=== PATIENT | female | born 1940 | race Caucasian/White ===

== ENCOUNTER 2017-08-09 15:13 | Inpatient (IN) | payer MEDICARE, OTHER ==
[~2017-08-09] VITALS: Ht 170.2 cm; Wt 57.4 kg
[2017-08-09] MEDS ORDERED: SODIUM CHLORIDE 0.9% 1000ML 1,000 ML IV STA (15:57)
[2017-08-09] MEDS ORDERED: PANTOPRAZOLE 40 MG 10ML VIAL IV STA (15:57)
[2017-08-09] MEDS ORDERED: MORPHINE SULFATE 4 MG/ML SYR IV STA (15:57)
[2017-08-09] MEDS ORDERED: PROMETHAZINE HCL (IM) 25 MG/ML VIAL IV STA (15:57)
[2017-08-09 16:07] LABS: BASOPHILS % 0.1 % (0.0-1.0); EOSINOPHILS % 0.1 % (0.0-6.0); HEMATOCRIT 35.2 % (34.2-44.1); HEMOGLOBIN 12.6 g/dL (12.0-16.0); LYMPHOCYTES # (AUTO) 0.3 (1.0-3.2); LYMPHOCYTES % 3.6 % (18.0-39.1); MEAN CORPUSCULAR HEMOGLOBIN 36.1 pg (28-32); MEAN CORPUSCULAR HGB CONC 35.8 g/dL (31-35); MEAN CORPUSCULAR VOLUME 100.9 fL (81-99); MONOCYTES # (AUTO) 0.5 (0.2-0.8); MONOCYTES % 5.3 % (4.4-11.3); NEUTROPHILS # (AUTO) 8.1 (2.1-6.9); NEUTROPHILS % 90.6 % (38.7-80.0); PLATELET COUNT 306 x10e3/uL (140-360); RED BLOOD COUNT 3.49 x10e6/uL (3.6-5.1); RED CELL DISTRIBUTION WIDTH 13.6 % (11.7-14.4)
[2017-08-09 16:23] LABS: ALANINE AMINOTRANSFERASE 9 IU/L (0-55); ALBUMIN 3.7 g/dL (3.5-5.0); ALKALINE PHOSPHATASE 142 IU/L (40-150); AMYLASE 11 U/L (25-125); ANION GAP 15.3 mmol/L (8-16); BLOOD UREA NITROGEN 16 mg/dL (7-26); BUN/CREATININE RATIO 21 (6-25); CALCIUM 10.2 mg/dL (8.4-10.2); CARBON DIOXIDE 28 mmol/L (22-29); CHLORIDE 95 mmol/L (98-107); CREATININE, SERUM 0.77 mg/dL (0.57-1.11); EST GLOMERULAR FILTRATION RATE > 60 ML/MIN (60-); GLUCOSE 134 mg/dL (74-118); LIPASE < 4 U/L (8-78); MAGNESIUM 2.1 MG/DL (1.3-2.1); POTASSIUM 3.3 mmol/L (3.5-5.1); SODIUM 135 mmol/L (136-145)
[2017-08-09] MEDS ORDERED: DIATRIZOATE MEGL/DIATRIZOA SOD 30 ML BTL PO ONE (16:26)
[2017-08-09] MEDS ORDERED: MORPHINE SULFATE 2 MG/ML SYR IV ONE (16:30)
[2017-08-09] MEDS ORDERED: MORPHINE SULFATE 2 MG/ML SYR ONE (16:31)
[2017-08-09] MEDS ORDERED: PANTOPRAZOLE 40 MG 10ML VIAL ONE (16:31)
[2017-08-09] MEDS ORDERED: PROMETHAZINE HCL (IM) 25 MG/ML VIAL ONE (16:31)
[2017-08-09] MEDS ORDERED: SODIUM CHLORIDE 0.9% 1000ML 1,000 ML ONE (16:32)
[2017-08-09] MEDS ORDERED: SODIUM CHLORIDE 0.9% 50ML 50 ML ONE (16:32)
--- NOTE | 2017-08-09 17:04 | Diagnostic Imaging Report ---
PROCEDURE: A single AP view of the chest. COMPARISON: None. INDICATIONS: UPPER ABDOMINAL PAIN FINDINGS: Lines/tubes: None. Lungs: Streaky opacities in the lung bases likely represents atelectasis or scar.. There is no evidence of pneumonia or pulmonary edema. Pleura: There is no pleural effusion or pneumothorax. Heart and mediastinum: Normal size heart. Mild tortuosity of the thoracic aorta. Small hiatal hernia. Bones: No acute bony abnormality. Healed fracture deformities of the left posterior sixth and seventh ribs. IMPRESSION: No evidence of infection or edema. Dictated by: Porfirio Colón M.D. on 08/09/2017 at 17:05 Electronically approved by: Porfirio Colón M.D. on 08/09/2017 at 17:05
--- NOTE | 2017-08-09 19:11 | Diagnostic Imaging Report ---
PROCEDURE: CT ABDOMEN AND PELVIS WITH CONTRAST TECHNIQUE: The abdomen and pelvis were scanned utilizing a multidetector helical scanner from the diaphragm to the lesser trochanter after the IV administration of 100 cc of Isovue 370. Coronal and sagittal multiplanar reformations were obtained. COMPARISON: None. INDICATIONS: abdominal pain, rule out SBO FINDINGS: LOWER THORAX: Normal. HEPATOBILIARY: Innumerable bilobar hypodense liver lesions. For example, one of the lesions in segment VII of series 2, image 12) measures 2.5 cm. There are multiple stones in the gallbladder. The common bile that is mildly dilated, measuring 1.1 cm. SPLEEN: No splenomegaly. PANCREAS: No focal masses or ductal dilatation. ADRENALS: No adrenal nodules. KIDNEYS/URETERS: No hydronephrosis, stones, or solid mass lesions. 1.0 cm hypodensity in the interpolar region of left kidney (series 2, image 26) is consistent with a cyst. PELVIC ORGANS/BLADDER: Evaluation of the pelvis is limited by streak artifact from the left hip orthopedic hardware PERITONEUM / RETROPERITONEUM: Small amount of free fluid in the pelvis. No free intraperitoneal air. LYMPH NODES: No lymphadenopathy. VESSELS: Mild atherosclerotic calcifications of the aorta and its branches. GI TRACT: There is marked, diffuse dilatation of the large bowel with a malignant appearing stricture in the mid-rectum that measures at least 4.5 cm (series 2, image 70). Moderate sliding hiatal hernia. A suture line in the proximal jejunum (series 2, image 48) indicates prior small bowel resection. BONES AND SOFT TISSUES: A medullary frances and screw device is present in the left femur without evidence of hardware malfunction. Multilevel degenerative changes of the lumbar spine, particularly at L4-L5 and L5-S1. IMPRESSION: 1. Large bowel obstruction due to a stricture in the mid rectum, highly suspicious for rectal cancer. 2. Numerous liver lesions, highly suspicious for metastases. 3. Cholelithiasis. There is mild dilatation of the common bile duct which is indeterminate. Dictated by: Porfirio Colón M.D. on 08/09/2017 at 19:12 Electronically approved by: Porfirio Colón M.D. on 08/09/2017 at 19:12
[2017-08-09 19:30] LABS: CLARITY,URINE SL CLOUDY (CLEAR); COLOR,URINE STRAW (YELLOW); LEUKOCYTE ESTERASE ,URINE NEGATIVE (NEGATIVE); NITRITE,URINE NEGATIVE (NEGATIVE)
[2017-08-09] MEDS ORDERED: PROMETHAZINE HCL (IM) 25 MG/ML VIAL IV PRN (19:30)
[2017-08-09] MEDS ORDERED: MORPHINE SULFATE 2 MG/ML SYR IV PRN (19:30)
[2017-08-09] MEDS ORDERED: SODIUM CHLORIDE 0.9% 250ML IRRIG IR SCH (19:30)
[2017-08-09 19:31] LABS: BILIRUBIN,URINE 1+ (NEGATIVE); KETONES,URINE 1+ (NEGATIVE); PROTEIN,URINE DIPSTICK 1+ (NEGATIVE); URINE UROBILINOGEN 1 mg/dL (0.2 - 1)
[2017-08-09] MEDS ORDERED: PIPER-TAZ 3.375 GM 50 ML IV STA (19:37)
[2017-08-09 19:43] LABS: BACTERIA,URINE MANY /HPF; RBC,URINE 0-5 /HPF (0-5)
[2017-08-09] MEDS ORDERED: PROMETHAZINE 12.5MG/ NACL 0.9% 50 ML IV PRN (19:45)
[2017-08-09] MEDS ORDERED: BENZOCAINE/TETRACAINE/BUTAMBEN AERO SPRAY 56 GM CAN TOP ONE (20:00)
[2017-08-09] MEDS ORDERED: PIPER-TAZ 3.375 GM 100 ML IV ONE (20:00)
[2017-08-09] MEDS ORDERED: LIDOCAINE VISC 2% SOLN 15 ML UDC PO ONE (20:00)
[2017-08-09] MEDS ORDERED: BENZOCAINE/TETRACAINE/BUTAMBEN AERO SPRAY 56 GM CAN ONE (20:02)
[2017-08-09] MEDS: SODIUM CHLORIDE 0.9% 250ML IRRIG IR SCH ×2 (21:00→23:30)
[2017-08-09] MEDS: SODIUM CHLORIDE 0.9% 1000ML 1,000 ML IV SCH (21:00)
--- OUTSIDE RECORDS SUMMARY | 2017-08-09 21:07 | XMS REPORT ---
Author Author [facility] Address Unknown Phone Unavailable Care Team Providers Care Music Educator Name Role Phone MIA GALLOWAY Unavailable Unavailable Problems This patient has no known problems. Allergies, Adverse Reactions, Alerts This patient has no known allergies or adverse reactions. Medications This patient has no known medications. Results Test Description Test Time Test Comments Text Results Atomic Results Result Comments CHEST SINGLE (PORTABLE) [place] [address] Patient Name: KRYSTINA MERCADO MR #: [id number] : 1940 Age/Sex: 76/F Req #: [id number] Adm Physician: Ordered by: MIA GALLOWAY MD Report #: [id number] Location: ER Room/Bed: Procedure: [id number] DX/CHEST SINGLE (PORTABLE) Exam Date: Exam Time: REPORT STATUS: Signed PROCEDURE: A single AP view of the chest. COMPARISON: None. INDICATIONS: UPPER ABDOMINAL PAIN FINDINGS: Lines/tubes: None. Lungs: Streaky opacities in the lung bases likely represents atelectasis or scar.. There is no evidence of pneumonia or pulmonary edema. Pleura: There is no pleural effusion or pneumothorax. Heart and mediastinum: Normal size heart. Mild tortuosity of the thoracic aorta. Small hiatal hernia. Bones: No acute bony abnormality. Healed fracture deformities of the left posterior sixth and seventh ribs. IMPRESSION: No evidence of infection or edema. Dictated by: Ernestina Pickard M.D. on 08/09/2017 at 17:05 Electronically approved by: Ernestina Pickard M.D. on 08/09/2017 at 17:05 Dictated By: ERNESTINA PICKARD MD 04 Transcribed By: YOBANY on 08/09/171704 COPY TO: MIA GALLOWAY MD CT ABDOMEN/PELVIS W [place] [address] Patient Name: KRYSTINA MERCADO MR #: [id number] : 1940 Age/Sex: 76/F Req #: [id number] Adm Physician: Ordered by: MIA GALLOWAY MD Report #: [id number] Location: ER Room/Bed: Procedure: [id number] CT/CT ABDOMEN/PELVIS W Exam Date: 08/09/17 Exam Time: 1835 REPORT STATUS: Signed PROCEDURE: CT ABDOMEN AND PELVIS WITH CONTRAST TECHNIQUE: The abdomen and pelvis were scanned utilizing a multidetector helical scanner from the diaphragm to the lesser trochanter after the IV administration of 100 cc of Isovue 370. Coronal and sagittal multiplanar reformations were obtained. COMPARISON : None. INDICATIONS: abdominal pain, rule out SBO FINDINGS: LOWER THORAX: Normal. HEPATOBILIARY: Innumerable bilobar hypodense liver lesions. For example, one of the lesions in segment VII of series 2, image 12 ) measures 2.5 cm. There are multiple stones in the gallbladder. The common bile that is mildly dilated, measuring 1.1 cm. SPLEEN: No splenomegaly. PANCREAS: No focal masses or ductal dilatation. ADRENALS: No adrenal nodules. KIDNEYS/URETERS: No hydronephrosis, stones, or solid mass lesions. 1.0 cm hypodensity in the interpolar region of left kidney (series 2, image 26) is consistent with a cyst. PELVIC ORGANS/ BLADDER: Evaluation of the pelvis is limited by streak artifact from the left hip orthopedic hardware PERITONEUM / RETROPERITONEUM: Small amount of free fluid in the pelvis. No free intraperitoneal air. LYMPH NODES: No lymphadenopathy. VESSELS: Mild atherosclerotic calcifications of the aorta and its branches. GI TRACT: There is marked, diffuse dilatation of the large bowel with a malignant appearing stricture in the mid-rectum that measures at least 4.5 cm (series 2, image 70). Moderate sliding hiatal hernia. A suture line in the proximal jejunum (series 2, image 48) indicates prior small bowel resection. BONES AND SOFT TISSUES: A medullary frances and screw device is present in the left femur without evidence of hardware malfunction. Multilevel degenerative changes of the lumbar spine, particularly at L4-L5 and L5-S1. IMPRESSION: 1. Large bowel obstruction due to a stricture in the mid rectum, highly suspicious for rectal cancer. 2. Numerous liver lesions, highly suspicious for metastases. 3. Cholelithiasis. There is mild dilatation of the common bile duct which is indeterminate. Dictated by: Ernestina Pickard M.D. on 08/09/2017 at 19:12 Electronically approved by: Ernestina Pickard M.D. on 08/09/2017 at 19:12 Dictated By: ERNESTINA PICKARD MD 11 Transcribed By: YOBANY on 08/09/171911 COPY TO: MIA GALLOWAY MD
[2017-08-09 21:30] VITALS: BP 163/96
[2017-08-09 22:32] VITALS: BP 163/96
[2017-08-09] MEDS ORDERED: IOPAMIDOL 370 MG/ML 200 ML INFUS..BTL INJ ONE (22:53)
[2017-08-09 23:22] LABS: INR 1.18; PROTHROMBIN TIME 14.1 seconds (11.9-14.5)
[2017-08-09] MEDS: PIPER-TAZ 3.375 GM 100 ML IV SCH (23:50)
[2017-08-10] VITALS (9 sets, daily range): BP systolic 124–166; BP diastolic 74–103
[2017-08-10] MEDS ORDERED: PIPER-TAZ 3.375 GM 50 ML IV SCH
[2017-08-10] MEDS: SODIUM CHLORIDE 0.9% 1000ML 1,000 ML IV SCH ×4 (03:22→23:50)
[2017-08-10] MEDS: SODIUM CHLORIDE 0.9% 250ML IRRIG IR SCH ×8 (03:30→23:50)
[2017-08-10] MEDS: PIPER-TAZ 3.375 GM 100 ML IV SCH ×6 (05:27→23:50)
[2017-08-10 05:55] LABS: BASOPHILS % 0.2 % (0.0-1.0); HEMATOCRIT 35.2 % (34.2-44.1); HEMOGLOBIN 12.3 g/dL (12.0-16.0); LYMPHOCYTES # (AUTO) 0.2 (1.0-3.2); LYMPHOCYTES % 1.8 % (18.0-39.1); MEAN CORPUSCULAR HGB CONC 34.9 g/dL (31-35); MEAN CORPUSCULAR VOLUME 102.9 fL (81-99); MONOCYTES # (AUTO) 0.6 (0.2-0.8); MONOCYTES % 5.2 % (4.4-11.3); NEUTROPHILS % 92.2 % (38.7-80.0); PLATELET COUNT 290 x10e3/uL (140-360); RED BLOOD COUNT 3.42 x10e6/uL (3.6-5.1); RED CELL DISTRIBUTION WIDTH 13.9 % (11.7-14.4)
[2017-08-10 06:28] LABS: ALANINE AMINOTRANSFERASE 8 IU/L (0-55); ALBUMIN 3.1 g/dL (3.5-5.0); ALBUMIN/GLOBULIN RATIO 0.9 (0.8-2.0); ALKALINE PHOSPHATASE 123 IU/L (40-150); ANION GAP 16.6 mmol/L (8-16); BLOOD UREA NITROGEN 15 mg/dL (7-26); BUN/CREATININE RATIO 22 (6-25); CALCIUM 9.2 mg/dL (8.4-10.2); CARBON DIOXIDE 25 mmol/L (22-29); CHLORIDE 99 mmol/L (98-107); CREATININE, SERUM 0.69 mg/dL (0.57-1.11); EST GLOMERULAR FILTRATION RATE > 60 ML/MIN (60-); GLUCOSE 146 mg/dL (74-118); POTASSIUM 3.6 mmol/L (3.5-5.1); SODIUM 137 mmol/L (136-145)
[2017-08-10] MEDS ORDERED: SODIUM CHLORIDE 0.9% INJ 50 ML BAG IV ONE (07:42)
[2017-08-10 07:45] LABS: LYMPHOCYTES % (MANUAL) 1 % (19-48); MONOCYTES % (MANUAL) 5 % (3.4-9.0); NEUTROPHILS % (MANUAL) 94 % (40-74); PLATELET ESTIMATE ADEQUATE; PLATELET MORPHOLOGY COMMENT NORMAL; RBC MORPHOLOGY COMMENT NORMAL
--- NOTE | 2017-08-10 08:31 | History and Physical ---
PRIMARY CARE PHYSICIAN: Dr. Parisi CHIEF COMPLAINT: Nausea, vomiting and constipation. HISTORY OF PRESENT ILLNESS: A 76-year-old woman with a history of bowel obstruction and status post exploratory laparotomy in February 2017, having found a mass at that time, but no real followup. Now, the patient developing nausea and vomiting for the past 3 days. She has not had any bowel movements for the past 21 days. Here she was found to have large bowel obstruction. She is admitted for further evaluation and management. This is a poor historian. PAST MEDICAL HISTORY: Bowel obstruction, status post exploratory laparotomy in February 2017 with finding of colonic mass. The patient states that she did not follow up. Myocardial infarction in 2009 without intervention. PAST SURGICAL HISTORY: Exploratory laparotomy in February 2017. ALLERGIES: PER ELECTRONIC MEDICAL RECORD. FAMILY HISTORY/SOCIAL HISTORY: Patient is . She has 2 sons. No alcohol, illicits or cigarettes. MEDICATIONS: Per electronic medical record. REVIEW OF SYSTEMS: Denies any dizziness or chest pain. PHYSICAL EXAMINATION VITAL SIGNS: Reviewed. GENERAL: A tired-appearing woman resting in bed. HEENT: Anicteric. She has an NG in place. CARDIOVASCULAR: Normal S1 and S2. LUNGS: Moderate breath sounds. ABDOMEN: Somewhat distended. Surgical scar on the abdominal wall. Mildly tender abdomen in the midabdomen. No rebound or guarding. EXTREMITIES: No edema. SKIN: Dry. PSYCHIATRIC: Flat affect. LABS: Reviewed. MEDICATIONS: Reviewed. ASSESSMENT AND PLAN: A 76-year-old woman with: 1. Large bowel obstruction: Likely mass involved. Possible cancer. Will obtain a CEA, CA19-9 and consult oncology. Will also continue with nasogastric tube and follow up surgical recommendations. 2. Urinary tract infection: Needs antibiotics and follow up cultures. 3. Cholelithiasis: Follow up outpatient. 4. Liver lesion: Likely related to the stricture, which is seen on the computerized tomography scan of the colon, which is likely a mass. 5. Abdominal pain: Use p.r.n. pain medications. 6. Hypokalemia: Replace and recheck. 7. Prophylaxis: Will use Lovenox and Pepcid. 8. Disposition: Follow up with recommendations. Consult oncology. Follow up labs. Job#: [id number] RI
[2017-08-10] MEDS: FAMOTIDINE 20 MG/2 ML VIAL IV SCH ×2 (08:38→23:28)
[2017-08-10] MEDS ORDERED: MORPHINE SULFATE 2 MG/ML SYR IV PRN (10:00)
[2017-08-10] MEDS: ENOXAPARIN SOD INJ 40 MG/0.4 ML SYR SC SCH (17:00)
[2017-08-10] MEDS ORDERED: LABETALOL HCL 5 MG/ML 20ML VIAL IV PRN (17:15)
[2017-08-10] MEDS ORDERED: FENTANYL CITRATE/PF 100MCG/2 ML INJ ONE (17:39)
[2017-08-10] MEDS ORDERED: MIDAZOLAM HCL 2 MG/2 ML VIAL ONE (17:39)
--- NOTE | 2017-08-10 19:00 | Consultation ---
DATE OF CONSULTATION: August 10, 2017 CHIEF COMPLAINT: Is abdominal distention, pain and obstipation. HISTORY OF PRESENT ILLNESS: The patient is a 76-year-old female with 2-week history of progressive abdominal distention, constipation and obstipation with decreased intake. She had nausea but no vomiting. Denies fever or chills. PAST MEDICAL HISTORY: Positive for a small-bowel resection secondary to malignancy with known hepatic metastasis. SURGICAL HISTORY: As above. Bowel resection in 2017. ALLERGIES: SHE HAS NO DRUG ALLERGIES. SOCIAL HABITS: No smoking or alcohol abuse. REVIEW OF SYSTEMS: No chest pain, no shortness of breath. PHYSICAL EXAMINATION: VITALS: Stable. Afebrile. GENERAL: She is awake, alert, in mild to moderate discomfort. HEENT: Sclerae anicteric. NECK: Supple. LUNGS: Clear. HEART: Regular rate and rhythm. ABDOMEN: Distended, with tympany. No focal tenderness or rebound. EXTREMITIES: Without cyanosis, edema. White cell count is 11.9, hemoglobin of 12. Creatinine of 0.7. CT scan showed bowel obstruction with a stricture in the mid rectum suspicious for rectal carcinoma. Hepatic metastasis. ASSESSMENT: Malignant obstruction of the rectum. PLAN: Exploratory laparotomy. Most likely colostomy will be required. Attendant risks discussed with patient. Job#: [id number] KESHA
[2017-08-10] MEDS ORDERED: PROPOFOL IV EMULSION 10 MG/ML 20 ML VIAL ONE (19:23)
[2017-08-10] MEDS ORDERED: DEXAMETHASONE SOD PHOS INJ 4 MG/ML VIAL ONE (19:23)
[2017-08-10] MEDS ORDERED: LIDOCAINE HCL 2% LOCAL INJ 5 ML SDV VIAL INJ ONE (19:23)
[2017-08-10] MEDS ORDERED: ONDANSETRON HCL INJ 2 MG/ML VIAL ONE (19:23)
[2017-08-10] MEDS ORDERED: SUCCINYLCHOLINE 200 MG/10 ML SYR ONE (19:23)
[2017-08-10] MEDS ORDERED: ROCURONIUM BROMIDE 10 MG/ML 5ML VIAL ONE (19:23)
[2017-08-10] MEDS ORDERED: CEFOXITIN SOD 1 GM VIAL ONE (19:23)
[2017-08-10] MEDS ORDERED: SEVOFLURANE INHAL SOLN 250 ML PEN BTL ONE (19:23)
[2017-08-11 04:57] VITALS: BP 112/85
[2017-08-11 05:31] LABS: BASOPHILS # (AUTO) 0.1 (0.0-0.1); BASOPHILS % 0.7 % (0.0-1.0); HEMATOCRIT 44.1 % (34.2-44.1); HEMOGLOBIN 15.1 g/dL (12.0-16.0); LYMPHOCYTES # (AUTO) 0.2 (1.0-3.2); LYMPHOCYTES % 3.4 % (18.0-39.1); MEAN CORPUSCULAR HEMOGLOBIN 35.6 pg (28-32); MEAN CORPUSCULAR HGB CONC 34.2 g/dL (31-35); MONOCYTES # (AUTO) 0.4 (0.2-0.8); MONOCYTES % 5.9 % (4.4-11.3); NEUTROPHILS # (AUTO) 6.3 (2.1-6.9); NEUTROPHILS % 89.6 % (38.7-80.0); PLATELET COUNT 343 x10e3/uL (140-360); RED BLOOD COUNT 4.24 x10e6/uL (3.6-5.1); RED CELL DISTRIBUTION WIDTH 14.2 % (11.7-14.4)
[2017-08-11 05:57] LABS: ANION GAP 16.2 mmol/L (8-16); BLOOD UREA NITROGEN 16 mg/dL (7-26); BUN/CREATININE RATIO 21 (6-25); CALCIUM 8.8 mg/dL (8.4-10.2); CARBON DIOXIDE 23 mmol/L (22-29); CHLORIDE 102 mmol/L (98-107); CREATININE, SERUM 0.75 mg/dL (0.57-1.11); EST GLOMERULAR FILTRATION RATE > 60 ML/MIN (60-); GLUCOSE 148 mg/dL (74-118); POTASSIUM 4.2 mmol/L (3.5-5.1); SODIUM 137 mmol/L (136-145)
[2017-08-11] MEDS: SODIUM CHLORIDE 0.9% 250ML IRRIG IR SCH (07:30)
[2017-08-11 07:57] LABS: BAND NEUTROPHILS % (MANUAL) 2 %; LYMPHOCYTES % (MANUAL) 3 % (19-48); NEUTROPHILS % (MANUAL) 95 % (40-74); PLATELET ESTIMATE ADEQUATE; PLATELET MORPHOLOGY COMMENT NORMAL
[2017-08-11 08:00] VITALS: BP 122/86
[2017-08-11] MEDS: SODIUM CHLORIDE 0.9% 1000ML 1,000 ML IV SCH ×2 (09:11→19:12)
[2017-08-11] MEDS: MORPHINE SULFATE 2 MG/ML SYR IV PRN (10:17)
[2017-08-11] MEDS ORDERED: LACTATED RINGER'S 1,000 ML IV STA (10:30)
[2017-08-11] MEDS ORDERED: LACTATED RINGER'S 1,000 ML ONE (10:38)
[2017-08-11] MEDS: FAMOTIDINE 20 MG/2 ML VIAL IV SCH ×2 (10:45→21:11)
[2017-08-11 12:00] VITALS: BP 126/88
[2017-08-11] MEDS: PIPER-TAZ 3.375 GM 100 ML IV SCH ×2 (14:12→19:12)
[2017-08-11] MEDS ORDERED: SODIUM CHLORIDE 0.9% 1000ML 1,000 ML IV ONE (14:14)
[2017-08-11 15:28] VITALS: BP 126/88
[2017-08-11 16:00] VITALS: BP 114/67
--- NOTE | 2017-08-11 16:07 | Progress Note ---
DATE: August 11, 2017 TIME: 1300. PROGRESS NOTE OVERNIGHT: Patient with significant agitation in ICU unit, removing colostomy bag; however, no acute physiologic event noted. REVIEW OF SYSTEMS: Patient denies chest pain, shortness of breath, nausea, vomiting, or diarrhea. PHYSICAL EXAMINATION VITAL SIGNS: Temperature 96.9, heart rate 115, respirations 20, BP is 122/86, pulse ox 99% on room air. GENERAL APPEARANCE: This is a tired-appearing, elderly woman, sitting in bed with head of bed elevated approximately 45 degrees. HEENT: Normocephalic with dry intact oral mucosa. Nares are patent. PERRLA. CARDIOVASCULAR: S1 and S2 distant with sinus tach noted per telemetry. LUNGS: Bilateral breath sounds are moderate with fair excursion. ABDOMEN: Soft, tender. Midline dressing clean, dry, and intact. Left upper quadrant colostomy noted with thin stool present. EXTREMITIES: Moves all. Positive DP/PT pulses. PSYCHIATRIC: Patient alert and oriented x1 only. Anxious countenance, difficult to redirect. NEURO: Gross motor skills and fine motor skills appear to be intact and patient was able to participate in neuro exam. LABS: PABLO 137, K 4.2, Cl 102, CO2 of 23, gap 16.2. BUN 16, CR 0.75. WBC 7.0, H and H 15.1/44.1, and platelets are 343. MEDICATIONS 1. Pepcid 20 mg q.12 hours IV. 2. Morphine 5 mg q.4 hours p.r.n. moderate pain. 3. Labetalol 5 mg p.r.n. IV q.4 hours hypertension. 4. Lovenox 40 mg subcu at 1700. 5. Zosyn q.6 hours IV. 6. Normal saline at 150 an hour. 7. LR bolus infusing at this time. ASSESSMENT AND PLAN: A 76-year-old woman with 1. Large bowel obstruction, status post day 1 exploratory laparotomy with colostomy. 2. Urinary tract infection. Continue IV antibiotics. 3. Cholelithiasis. Outpatient followup. 4. Liver lesion. Incidental finding on CT of the colon related to mass. 5. Abdominal pain. P.r.n. pain medications. 6. Hypokalemia. We will recheck in the a.m. and replace if needed. 7. Prophylaxis. Lovenox and Pepcid. 8. Disposition. We will try p.r.n. Ativan for postoperative delirium, discussed at length with nursing staff at bedside, use of redirection. Asymptomatic sinus tach reviewed. Continue with IV fluids following the current LR bolus for NS at 75 for a total of 2.5 liters prior to a.m. BMP. Continue telemonitoring and follow up in a.m. Dictated by: Mary Ziegler NP. Job#: [id number] VAS
[2017-08-11] MEDS: ENOXAPARIN SOD INJ 40 MG/0.4 ML SYR SC SCH (19:12)
[2017-08-11 20:00] VITALS: BP 116/62
[2017-08-12] VITALS (10 sets, daily range): BP systolic 108–140; BP diastolic 56–72
[2017-08-12] MEDS: PIPER-TAZ 3.375 GM 100 ML IV SCH ×4 (01:29→17:17)
[2017-08-12 08:04] LABS: ALANINE AMINOTRANSFERASE 7 IU/L (0-55); ALBUMIN/GLOBULIN RATIO 0.7 (0.8-2.0); ALKALINE PHOSPHATASE 71 IU/L (40-150); ANION GAP 11.4 mmol/L (8-16); BLOOD UREA NITROGEN 18 mg/dL (7-26); BUN/CREATININE RATIO 25 (6-25); CALCIUM 8.5 mg/dL (8.4-10.2); CARBON DIOXIDE 27 mmol/L (22-29); CHLORIDE 103 mmol/L (98-107); CREATININE, SERUM 0.71 mg/dL (0.57-1.11); EST GLOMERULAR FILTRATION RATE > 60 ML/MIN (60-); GLUCOSE 115 mg/dL (74-118); POTASSIUM 3.4 mmol/L (3.5-5.1); SODIUM 138 mmol/L (136-145)
[2017-08-12] MEDS: SODIUM CHLORIDE 0.9% 1000ML 1,000 ML IV SCH ×2 (08:56→18:21)
[2017-08-12] MEDS: MORPHINE SULFATE 2 MG/ML SYR IV PRN (08:56)
[2017-08-12] MEDS: FAMOTIDINE 20 MG/2 ML VIAL IV SCH ×2 (08:56→21:00)
[2017-08-12] MEDS ORDERED: POTASSIUM CHLORIDE 10MEQ/100ML 100 ML IV ONE (12:15)
--- NOTE | 2017-08-12 12:35 | Progress Note ---
DATE: August 12, 2017 TIME: 11:45 a.m. OVERNIGHT: No acute events. REVIEW OF SYSTEMS: Patient denies chest pain, shortness of breath, nausea, vomiting, diarrhea, dizziness or headache. Slight tenderness to abdominal incision per patient. PHYSICAL EXAMINATION VITAL SIGNS: T 98.9 oral, P 80, respirations 19, BP 140/65. Pulse oximetry on room air is 97%. GENERAL APPEARANCE: This is a tired-appearing, elderly woman, sitting with head of bed elevated approximately 45 degrees, consuming clear liquid broth. HEAD, EYES, EARS, NOSE AND THROAT: Normocephalic. No sinus tenderness. Oral mucosa is moist and intact. CV: S1 and S2 distant with regular rate and rhythm. LUNGS: Bilateral breath sounds are clear to auscultation in all olson with fair excursion. ABDOMEN: Soft, slightly tender. Midline dressing clean, dry, and intact. Left upper quadrant colostomy noted with thin stool. Additional gauze dressing in place with scant drainage noted. EXTREMITIES: Moves all. Positive DP pulses +2. PSYCHIATRIC: Alert and oriented to person, place and time. Intermittent forgetfulness per conversation verified with nursing staff. However, the patient is very easy to direct this day. NEUROLOGIC: Gross motor skills intact. LABS: Sodium 138, K 3.4, Cl 103, CO2 27, gap 11.4, BUN 18, creatinine 0.7. MEDICATIONS 1. Normal saline at 75 mL an hour. 2. P.R.N. morphine 5 mg q.4 h. IV. 3. Pepcid 20 mg q.12 h. IV. 4. Zosyn q.6 hours IV. 5. Lovenox 40 mg at 1700 subcutaneous. 6. Labetalol p.r.n. 5 mg as needed for high blood pressure. 7. Ativan 1 mg q.6 h. IV p.r.n. agitation. ASSESSMENT AND PLAN: A 76-year-old woman with: 1. Large-bowel obstruction, status day #1 post exploratory laparotomy with colostomy. 2. Urinary tract infection. Continue IV antibiotics. 3. Cholelithiasis. Outpatient followup. 4. Liver lesion per CT in the colon related to mass. 5. Abdominal pain, resolving. Provide p.r.n. pain control. 6. Hypokalemia. Values as above. Will replace and recheck in a.m. 7. Prophylaxis: Lovenox and Pepcid. 8. Disposition: Continue IV fluids following yesterday's bolus. Asymptomatic sinus tach has resolved. Patient with much improved mentation and absence of agitation. Hospice evaluation pending. Advancing diet per surgical services. Nursing staff will discontinue Isidro per surgical services. Have the patient sit and dangle as tolerated. Dictated by: Mary Ziegler NP. Job#: [id number]
[2017-08-12] MEDS: ENOXAPARIN SOD INJ 40 MG/0.4 ML SYR SC SCH (17:17)
[2017-08-13] VITALS (7 sets, daily range): BP systolic 119–146; BP diastolic 66–84
[2017-08-13] MEDS: PIPER-TAZ 3.375 GM 100 ML IV SCH ×5 (05:30→23:42)
[2017-08-13] MEDS: SODIUM CHLORIDE 0.9% 1000ML 1,000 ML IV SCH ×2 (05:30→11:30)
[2017-08-13 06:47] LABS: ANION GAP 12.1 mmol/L (8-16); BLOOD UREA NITROGEN 12 mg/dL (7-26); BUN/CREATININE RATIO 20 (6-25); CARBON DIOXIDE 23 mmol/L (22-29); CHLORIDE 103 mmol/L (98-107); CREATININE, SERUM 0.61 mg/dL (0.57-1.11); EST GLOMERULAR FILTRATION RATE > 60 ML/MIN (60-); GLUCOSE 83 mg/dL (74-118); POTASSIUM 3.1 mmol/L (3.5-5.1); SODIUM 135 mmol/L (136-145)
--- NOTE | 2017-08-13 07:51 | Progress Note ---
DATE: August 13, 2017 TIME: 7:32 a.m. OVERNIGHT: No pain. REVIEW OF SYSTEMS: Denies any dizziness or chest pain. PHYSICAL EXAMINATION VITAL SIGNS: Reviewed. GENERAL: A tired-appearing woman resting in bed. HEENT: Anicteric. CARDIOVASCULAR: Normal S1 and S2. LUNGS: Moderate breath sounds. ABDOMEN: Soft. She has a midline dressing in place clean and dry. She has a left-sided colostomy in place with some stool. EXTREMITIES: No edema. SKIN: Dry. PSYCHIATRIC: Flat affect. LABS: Reviewed. MEDICATIONS: Reviewed. ASSESSMENT: A 76-year-old woman with: 1. Large bowel obstruction. 2. Urinary tract infection. 3. Cholelithiasis. 4. Liver lesion likely related to colon mass. 5. Abdominal pain. 6. Hypokalemia. 7. Elevated CEA and CA19-9. PLAN 1. Continue supportive care. 2. Continue clear liquid diet. Surgery regarding advancement of diet. 3. Replace potassium. 4. Continue Zosyn empirically. 5. Continue Lovenox and Pepcid. 6. Discharge planning. Job#: [id number] KERRI
[2017-08-13] MEDS ORDERED: POTASSIUM CHLORIDE 20 MEQ TAB CR PO ONE (08:00)
[2017-08-13] MEDS: FAMOTIDINE 20 MG/2 ML VIAL IV SCH ×2 (09:18→21:33)
[2017-08-13] MEDS: ENOXAPARIN SOD INJ 40 MG/0.4 ML SYR SC SCH (17:07)
[2017-08-14] VITALS: BP 155/73
[2017-08-14] MEDS: PIPER-TAZ 3.375 GM 100 ML IV SCH ×4 (05:54→23:54)
[2017-08-14] MEDS: SODIUM CHLORIDE 0.9% 1000ML 1,000 ML IV SCH ×2 (06:04→21:12)
[2017-08-14 07:49] LABS: ANION GAP 13.8 mmol/L (8-16); BLOOD UREA NITROGEN 7 mg/dL (7-26); BUN/CREATININE RATIO 12 (6-25); CALCIUM 8.2 mg/dL (8.4-10.2); CARBON DIOXIDE 22 mmol/L (22-29); CHLORIDE 103 mmol/L (98-107); CREATININE, SERUM 0.59 mg/dL (0.57-1.11); EST GLOMERULAR FILTRATION RATE > 60 ML/MIN (60-); GLUCOSE 78 mg/dL (74-118); MAGNESIUM 1.4 MG/DL (1.3-2.1); PHOSPHORUS 2.1 MG/DL (2.3-4.7); SODIUM 136 mmol/L (136-145)
[2017-08-14 07:51] LABS: POTASSIUM 2.8 mmol/L (3.5-5.1)
[2017-08-14] MEDS: METOPROLOL TARTRATE 25 MG TAB PO SCH ×2 (08:15→16:37)
[2017-08-14 08:37] VITALS: BP 142/95
[2017-08-14] MEDS: FAMOTIDINE 20 MG/2 ML VIAL IV SCH ×2 (09:00→21:12)
[2017-08-14] MEDS ORDERED: POTASSIUM CHLORIDE 20MEQ/100ML 200 ML IV ONE (09:00)
[2017-08-14] MEDS ORDERED: POTASSIUM CHLORIDE 20 MEQ TAB CR PO ONE (09:10)
--- NOTE | 2017-08-14 10:32 | Progress Note ---
DATE: August 14, 2017 TIME: 7 a.m. OVERNIGHT: Small amount of diarrhea. REVIEW OF SYSTEMS: Denies any chest pain. PHYSICAL EXAMINATION VITAL SIGNS: Reviewed. GENERAL: A tired-appearing woman resting in bed. HEENT: Anicteric. CARDIOVASCULAR: Normal S1 and S2. LUNGS: Moderate breath sounds. ABDOMEN: Soft and nondistended. She has a colostomy in place. She has some stool in the colostomy bag. EXTREMITIES: No edema. SKIN: Dry. PSYCHIATRIC: Flat affect. NEUROLOGICAL: Alert and appropriate. LABS: Reviewed. MEDICATIONS: Reviewed. ASSESSMENT: A 76-year-old woman with: 1. Large bowel obstruction. 2. Urinary tract infection. 3. Cholelithiasis. 4. Liver lesion likely related to colon mass. 5. Abdominal pain. 6. Hypokalemia. 7. Elevated CEA and CA19-9. PLAN 1. Continue supportive care. 2. Continue diet. 3. Continue antibiotics. 4. Lovenox and Pepcid. 5. Check electrolytes. 6. Add beta latoya. Job#: [id number] DE
[2017-08-14 12:13] VITALS: BP 133/81
[2017-08-14 16:00] VITALS: BP 122/74
[2017-08-14] MEDS: ENOXAPARIN SOD INJ 40 MG/0.4 ML SYR SC SCH (16:37)
[2017-08-14 20:00] VITALS: BP 139/85
[2017-08-15] VITALS (8 sets, daily range): BP systolic 105–134; BP diastolic 57–83
[2017-08-15] MEDS: PIPER-TAZ 3.375 GM 100 ML IV SCH ×3 (05:30→17:33)
--- NOTE | 2017-08-15 07:27 | Progress Note ---
DATE: August 15, 2017 TIME: 6:54 a.m. OVERNIGHT: No events. REVIEW OF SYSTEMS: Denies any chest pain. VITAL SIGNS: Reviewed. PHYSICAL EXAMINATION GENERAL: A tired-appearing woman resting in bed. HEENT: Anicteric. CARDIOVASCULAR: Normal S1 and S2. LUNGS: Moderate breath sounds. ABDOMEN: Soft, nontender and nondistended. She has a colostomy in place and a midline dressing. EXTREMITIES: No edema. SKIN: Dry. PSYCHIATRIC: Flat affect. LABS: Reviewed. MEDICATIONS: Reviewed. ASSESSMENT: A 76-year-old woman. 1. Large-bowel obstruction. 2. Urinary tract infection. 3. Cholelithiasis. 4. Liver lesion related to colon mass. 5. Abdominal pain. 6. Elevated carotid endarterectomy and CA19-9. 7. Status post colostomy placement. PLAN 1. Continue supportive care. 2. Continue diet. 3. Continue physical therapy. 4. Continue Lovenox and Pepcid. 5. Continue electrolyte management. 6. Blood pressure is better controlled. Continue beta latoya. 7. Discharge plan to skilled facility is pending. 8. Check potassium level now and replace as appropriate. 9. Check magnesium and phosphorus as well. Job#: [id number]
[2017-08-15 08:01] LABS: MAGNESIUM 1.2 MG/DL (1.3-2.1); PHOSPHORUS 1.6 MG/DL (2.3-4.7)
[2017-08-15 08:04] LABS: POTASSIUM 2.8 mmol/L (3.5-5.1)
[2017-08-15] MEDS ORDERED: POTASSIUM CHLORIDE 10MEQ/100ML 100 ML IV ONE (09:00)
[2017-08-15] MEDS: METOPROLOL TARTRATE 25 MG TAB PO SCH ×2 (09:00→17:00)
[2017-08-15] MEDS: FAMOTIDINE 20 MG/2 ML VIAL IV SCH ×2 (09:10→21:30)
[2017-08-15] MEDS ORDERED: MAGNESIUM SULFATE 2GM/50ML 50 ML IV ONE (09:30)
[2017-08-15] MEDS ORDERED: POTASSIUM CHLORIDE 20MEQ/100ML 200 ML IV ONE ×2 (09:30)
[2017-08-15] MEDS ORDERED: POTASSIUM PHOSPHATE 20 MM in SODIUM CHLORIDE 0.9% 250ML 250 ML IV ONE (10:00)
[2017-08-15] MEDS: SODIUM CHLORIDE 0.9% 1000ML 1,000 ML IV SCH (12:45)
[2017-08-15 16:40] LABS: MAGNESIUM 1.7 MG/DL (1.3-2.1); POTASSIUM 3.5 mmol/L (3.5-5.1)
[2017-08-15] MEDS: ENOXAPARIN SOD INJ 40 MG/0.4 ML SYR SC SCH (17:17)
--- NOTE | 2017-08-15 20:33 | Operative Report ---
DATE OF PROCEDURE: August 10, 2017 PREOPERATIVE DIAGNOSIS: Malignant rectal obstruction. 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 PROCEDURES 1. Exploratory laparotomy. 2. Right extended hemicolectomy with end colostomy and mucous fistula. ANESTHESIA: General, Dr. Regan. 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 The patient had not received adjuvant chemotherapy. She has presented with progressive abdominal distention with no bowel movement for several weeks. CT scan confirmed complete obstruction of the rectum with proximal massive dilatation of the right colon. The patient had consented for exploratory laparotomy with all attendant risks discussed. PROCEDURE FINDINGS: Ischemic change in the right colon with perforation in the ascending colon. At this level, maximal colonic dilatation. Serosal tear from the cecum to the midtransverse colon at several places. DESCRIPTION OF PROCEDURE: The patient was brought to the OR intubated. Abdomen prepped with alcohol and draped in a sterile fashion. A midline incision was made from the xiphoid down toward the pubic symphysis going through the linea alba. On entering the peritoneal cavity, massive bowel dilatations encountered. The site of obstruction is noted to be in the deep pelvis at the level of the lower rectum. The proximal colon to the obstruction is massively dilated with maximal dilatations greater than 15 cm in the cecal area with a perforation. There was no fecal extravasation, however. At this point, the right colon is mobilized up to the hepatic flexure using the LigaSure instrument. The transverse colon is also mobilized from the gastrocolic ligament. We proceeded to transect the terminal ileum 5 cm from the ileocecal valve with the REBECCA stapler and the transverse colon was transected with the same stapler just distal to the midtransverse colon. The mesentery was controlled with LigaSure instrument and specimen is removed from the operative field. Hemostasis achieved. We proceeded to perform an end-to-end anastomoses using a REBECCA stapler and TL-60 instrument. Mesentery to the anastomosis is also closed with running 3-0 silk stitches. At this point, the level of the sigmoid colon was seen to be somewhat redundant. It was then chosen for the colostomy. The distal sigmoid colon is then transected with a REBECCA stapler, and the sigmoid colon brought out through the left lower quadrant transrectus muscle to create a sigmoid colostomy. The fascia had been opened in a cruciate fashion, and the rectus muscle split. The peritoneum entered before exteriorization of the sigmoid colon. The rectum was then brought out through the lower aspect of the midline incisions as a mucous fistula. We then irrigated the peritoneal cavity with 5-6 L of saline solution to wash out all fecal contamination, which occurred during the operation. Hemostasis achieved. We closed the midline fascia with running #1 PDS and skin with lj. The staple end of the rectum was exteriorized to the lower aspect of the incision. A mucous fistula is created by everting the bowel edge to the skin with 3-0 Vicryl stitch. The apertures approximately 1 cm in diameter in this area. We then proceeded to mature the end sigmoid colostomy by taking away the staple line and everting the colonic edge to the skin with 3-0 Vicryl stitch. Ostomy appliance inserted. Dressing applied. The patient then extubated and transported to the recovery room in guarded condition. Estimated blood loss 50 mL. Job#: [id number] NE
[2017-08-16] VITALS (8 sets, daily range): BP systolic 103–127; BP diastolic 58–76
[2017-08-16] MEDS: PIPER-TAZ 3.375 GM 100 ML IV SCH ×5 (00:10→23:39)
[2017-08-16] MEDS: SODIUM CHLORIDE 0.9% 1000ML 1,000 ML IV SCH ×2 (00:10→13:02)
[2017-08-16 07:56] LABS: MAGNESIUM 1.6 MG/DL (1.3-2.1); PHOSPHORUS 2.6 MG/DL (2.3-4.7); POTASSIUM 3.1 mmol/L (3.5-5.1)
[2017-08-16] MEDS: METOPROLOL TARTRATE 25 MG TAB PO SCH ×2 (09:00→17:00)
[2017-08-16] MEDS: FAMOTIDINE 20 MG/2 ML VIAL IV SCH ×2 (09:49→21:45)
--- NOTE | 2017-08-16 10:13 | Consultation ---
DATE OF CONSULTATION: August 13, 2017 HPI: Ms. 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 The patient had resection. I had a conference with the patient at the office. It was suggested systemic chemotherapy; however, she had refused chemotherapy, presents with bowel obstruction and distention of the abdomen, vomiting fecal material, subsequently referred for evaluation. SOCIAL HISTORY: Noncontributory. FAMILY HISTORY: Noncontributory. ALLERGIES: REPORTED NORMAL. MEDICATIONS: At this time 1. Promethazine. 2. Zosyn. 3. Sodium chloride. 4. Pepcid. 5. Lovenox. 6. Labetalol. 7. Morphine. 8. Lorazepam. REVIEW OF SYSTEMS HEENT: Normal. CARDIAC: Normal. RESPIRATORY: Normal. GI: Colon cancer, liver metastases, lung metastases. Bowel obstruction at this time. MUSCULOSKELETAL: Normal. SKIN AND BREASTS: Normal. NEUROENDOCRINE: Normal. PHYSICAL EXAMINATION GENERAL: A cachectic female with a nasogastric tube, distended bowel, and no adenopathy. HEART: Tachycardic. LUNGS: Clear. ABDOMEN: Obese. RECTAL: Could not be done. CENTRAL NERVOUS SYSTEM: Essentially normal. LABS: Hemoglobin of 15.1, hematocrit 44.1, white count of 7800, and platelets of 343,000. Sodium 135, potassium 3.1, chloride 73, CO2 of 23, BUN 12, and creatinine 0.6. Glucose 83. INR 1.18, bilirubin 0.8, SGOT 6, SGPT 7, and alkaline phosphatase 71. CAT scan of the abdomen shows bowel obstruction. Patient also has liver and lung metastases. IMPRESSIONS 1. Colon cancer, status post surgery approximately a year back. 2. Liver metastasis. 3. Lung metastasis. 4. Bowel obstruction. 5. Noncompliance. 6. History of coronary artery disease with noncompliance. PLAN: To provide best supportive care only for far advanced malignancy. I know this patient's family problems. The patient has a son who lives in [place]. Last year I had contacted him to come over to take care of the mother who has refused any chemotherapy and/or to take the mother to [place] to provide some support both physical and moral. However, he did disclose that he is and he does not have time to do anything. Unfortunately, the family situation is not conducive to even hospice even though she is a hospice candidate. Thank you very much for allowing me to participate in management of this patient. Best supportive care for this terminal disease. Job#: [id number] CF cc:TEOFILO ELIZABETH MD
[2017-08-16] MEDS: ENOXAPARIN SOD INJ 40 MG/0.4 ML SYR SC SCH (17:36)
[2017-08-17] VITALS (8 sets, daily range): BP systolic 101–147; BP diastolic 51–90
[2017-08-17] MEDS: SODIUM CHLORIDE 0.9% 1000ML 1,000 ML IV SCH ×3 (02:50→17:07)
[2017-08-17 08:01] LABS: BASOPHILS % 0.3 % (0.0-1.0); EOSINOPHILS # (AUTO) 0.1 (0.0-0.4); EOSINOPHILS % 0.9 % (0.0-6.0); HEMATOCRIT 31.6 % (34.2-44.1); LYMPHOCYTES # (AUTO) 0.4 (1.0-3.2); LYMPHOCYTES % 6.3 % (18.0-39.1); MEAN CORPUSCULAR HEMOGLOBIN 35.6 pg (28-32); MEAN CORPUSCULAR HGB CONC 34.8 g/dL (31-35); MEAN CORPUSCULAR VOLUME 102.3 fL (81-99); MONOCYTES # (AUTO) 0.4 (0.2-0.8); MONOCYTES % 5.8 % (4.4-11.3); NEUTROPHILS # (AUTO) 5.4 (2.1-6.9); NEUTROPHILS % 84.7 % (38.7-80.0); PLATELET COUNT 236 x10e3/uL (140-360); RED BLOOD COUNT 3.09 x10e6/uL (3.6-5.1); RED CELL DISTRIBUTION WIDTH 14.2 % (11.7-14.4)
[2017-08-17] MEDS: FAMOTIDINE 20 MG/2 ML VIAL IV SCH ×2 (08:16→20:32)
[2017-08-17] MEDS: METOPROLOL TARTRATE 25 MG TAB PO SCH ×2 (08:17→17:00)
[2017-08-17 08:37] LABS: ANION GAP 10.9 mmol/L (8-16); BLOOD UREA NITROGEN 5 mg/dL (7-26); BUN/CREATININE RATIO 8 (6-25); CALCIUM 8.3 mg/dL (8.4-10.2); CARBON DIOXIDE 25 mmol/L (22-29); CHLORIDE 106 mmol/L (98-107); CREATININE, SERUM 0.62 mg/dL (0.57-1.11); EST GLOMERULAR FILTRATION RATE > 60 ML/MIN (60-); GLUCOSE 99 mg/dL (74-118); SODIUM 139 mmol/L (136-145)
[2017-08-17 08:39] LABS: POTASSIUM 2.9 mmol/L (3.5-5.1)
[2017-08-17] MEDS ORDERED: POTASSIUM CHLORIDE 20 MEQ TAB CR PO STA (08:44)
[2017-08-17] MEDS ORDERED: POTASSIUM CHLORIDE 20MEQ/100ML 200 ML IV ONE (08:45)
[2017-08-17] MEDS: LORAZEPAM INJ 2 MG/ML VIAL IV PRN ×2 (11:18→19:54)
--- NOTE | 2017-08-18 00:16 | Progress Note ---
DATE: August 16, 2017 TIME: 7:30 a.m. OVERNIGHT: Patient had electrolyte derangement. REVIEW OF SYSTEMS: Denies any chest pain. PHYSICAL EXAMINATION: VITAL SIGNS: Reviewed. GENERAL APPEARANCE: Tired-appearing woman resting in bed. HEENT: Anicteric. CARDIOVASCULAR: Normal S1 and S2. LUNGS: Moderate breath sounds. ABDOMEN: Soft, not distended. Has colostomy in place. Midline dressing in place. EXTREMITIES: No edema. SKIN: Dry. PSYCHIATRIC: Flat affect. LABS: Reviewed. MEDICATIONS: Reviewed. ASSESSMENT: A 76-year-old woman. 1. Large-bowel obstruction. 2. Urinary tract infection. 3. Cholelithiasis. 4. Liver lesion related to colon mass. 5. Abdominal pain. 6. Status post colostomy placement. PLAN: 1. Continue pain control. 2. Continue physical therapy. 3. Continue diet. 4. Discharge planning. Job#: [id number]
--- NOTE | 2017-08-18 00:20 | Progress Note ---
DATE: August 17, 2017 TIME: 7:30 a.m. OVERNIGHT: No events. REVIEW OF SYSTEMS: Denies any chest pain. Denies any shortness of breath. PHYSICAL EXAMINATION VITAL SIGNS: Reviewed. GENERAL: A tired-appearing woman resting in bed. HEENT: Anicteric. CARDIOVASCULAR: Normal S1 and S2. LUNGS: Moderate breath sounds. ABDOMEN: Soft. She has a midline dressing in place. Colostomy in place. EXTREMITIES: No edema. SKIN: Dry. PSYCHIATRIC: Flat affect. LABS: Reviewed. MEDICATIONS: Reviewed. ASSESSMENT: A 76-year-old woman with: 1. Large-bowel obstruction: Status post colostomy for surgical management with colostomy placement. 2. Urinary tract infection. 3. Cholelithiasis. 4. Liver lesion related to colon mass. 5. Abdominal pain. PLAN 1. Continue pain control. 2. Continue physical therapy. 3. Continue diet. 4. Needs outpatient followup with oncology. 5. Prognosis is poor. 6. Discharge planning. Replace electrolytes as appropriate. Check labs. Job#: [id number] KERRI
[2017-08-18] MEDS: SODIUM CHLORIDE 0.9% 1000ML 1,000 ML IV SCH ×2 (05:30→18:50)
[2017-08-18 06:05] VITALS: BP 129/75
[2017-08-18 07:37] VITALS: BP 131/68
[2017-08-18] MEDS: FAMOTIDINE 20 MG/2 ML VIAL IV SCH ×2 (08:20→21:07)
[2017-08-18] MEDS: METOPROLOL TARTRATE 25 MG TAB PO SCH ×2 (08:20→16:49)
[2017-08-18 11:18] VITALS: BP 124/71
[2017-08-18 15:41] VITALS: BP 108/65
[2017-08-18] MEDS: ACETAMINOPHEN 325 MG TAB PO PRN ×2 (16:49→21:12)
[2017-08-18 20:00] VITALS: BP 109/68
[2017-08-19] VITALS (8 sets, daily range): BP systolic 105–112; BP diastolic 56–72
[2017-08-19] MEDS: SODIUM CHLORIDE 0.9% 1000ML 1,000 ML IV SCH ×2 (08:10→21:30)
[2017-08-19] MEDS: METOPROLOL TARTRATE 25 MG TAB PO SCH ×2 (09:15→17:03)
[2017-08-19] MEDS: FAMOTIDINE 20 MG/2 ML VIAL IV SCH ×2 (09:15→22:31)
[2017-08-20 00:55] VITALS: BP 106/70
[2017-08-20] MEDS ORDERED: LOPRESSOR25 MG PO (06:42)
[2017-08-20] MEDS ORDERED: PEPCID20 MG PO (06:42)
[2017-08-20] MEDS ORDERED: SENNA LAXATIVE8.6 MG PO (06:43)
[2017-08-20 07:12] VITALS: BP 104/56
[2017-08-20 09:00] VITALS: BP 104/56
[2017-08-20] MEDS: FAMOTIDINE 20 MG/2 ML VIAL IV SCH ×2 (09:00→20:27)
[2017-08-20] MEDS: METOPROLOL TARTRATE 25 MG TAB PO SCH ×2 (09:00→16:30)
--- NOTE | 2017-08-20 09:56 | Progress Note ---
DATE: August 19, 2017 MEDICINE PROGRESS NOTE TIME OF SERVICE: 1600 OVERNIGHT: No acute events. Continues with one-to-one sitter. REVIEW OF SYSTEMS: Denies any chest pain, nausea, vomiting, dizziness or shortness of breath. OBJECTIVE VITAL SIGNS: T is 96.6, pulse 84, respirations 20, BP 108/56 this a.m. GENERAL APPEARANCE: This is a tired-appearing woman resting in bed. HEENT: Normocephalic with moist oral mucosa and good dentition. CARDIOVASCULAR: S1 and S2 were auscultated without clicks, murmur or rubs. LUNGS: Moderate breath sounds with good excursions. ABDOMEN: Soft, slightly distended. Midline dressing in place, with left side colostomy intact. Stool noted. EXTREMITIES: No edema. DP pulses +1. SKIN: Dry. PSYCHIATRIC: Normal affect. NEUROLOGIC: Patient is alert and oriented to self only. Difficult to reorient. Continue with one-to-one sitter. LABS: Prior values reviewed. MEDICATIONS: The patient is currently taking metoprolol, Pepcid, p.r.n. , p.r.n. labetalol, and maintenance normal saline. ASSESSMENT AND PLAN: This is a 76-year-old woman with 1. Large-bowel obstruction with liver lesion, status post colostomy per Surgery. Oncology following up related to colon mass/liver lesion. 2. Urinary tract infection, treated prior with Zosyn. Treatment completed on August 17. 3. Cholelithiasis. 4. Abdominal pain, controlled. DISPOSITION: Continue diet, physical therapy and discharge planning. Prognosis is poor per notes. Dictated by: Mary Ziegler NP Job#: [id number] EV
[2017-08-20] MEDS: SODIUM CHLORIDE 0.9% 1000ML 1,000 ML IV SCH (10:50)
[2017-08-20 12:53] VITALS: BP 103/53
[2017-08-20 18:07] VITALS: BP 103/61
[2017-08-20 20:00] VITALS: BP 109/64
[2017-08-21] VITALS (7 sets, daily range): BP systolic 92–116; BP diastolic 52–71
[2017-08-21] MEDS: SODIUM CHLORIDE 0.9% 1000ML 1,000 ML IV SCH ×2 (00:10→13:30)
[2017-08-21] MEDS: FAMOTIDINE 20 MG/2 ML VIAL IV SCH ×2 (07:51→20:27)
[2017-08-21] MEDS: METOPROLOL TARTRATE 25 MG TAB PO SCH ×2 (09:00→15:49)
[2017-08-21 09:56] LABS: ANION GAP 11.8 mmol/L (8-16); BLOOD UREA NITROGEN 10 mg/dL (7-26); BUN/CREATININE RATIO 15 (6-25); CALCIUM 8.8 mg/dL (8.4-10.2); CARBON DIOXIDE 26 mmol/L (22-29); CHLORIDE 105 mmol/L (98-107); CREATININE, SERUM 0.65 mg/dL (0.57-1.11); EST GLOMERULAR FILTRATION RATE > 60 ML/MIN (60-); GLUCOSE 116 mg/dL (74-118); POTASSIUM 3.8 mmol/L (3.5-5.1); SODIUM 139 mmol/L (136-145)
[2017-08-21] MEDS: ACETAMINOPHEN 325 MG TAB PO PRN (12:13)
[2017-08-22 00:23] VITALS: BP 110/66
[2017-08-22] MEDS: SODIUM CHLORIDE 0.9% 1000ML 1,000 ML IV SCH (02:50)
[2017-08-22 05:44] VITALS: BP 104/61
[2017-08-22 07:11] VITALS: BP 91/54
[2017-08-22] MEDS: FAMOTIDINE 20 MG/2 ML VIAL IV SCH (09:00)
--- NOTE | 2017-08-22 13:31 | Consultation ---
DATE OF CONSULTATION: August 10, 2017 REQUESTING PHYSICIAN: Dr. Roumlo Paz. HPI: Sandra Arango is a 76-year-old white female who presented with bowel obstruction, nausea, vomiting, and fecal material. Subsequently, the patient had surgical consultation. Decompression was done with nasogastric tube, subsequently referred to me for further evaluation. No history of past illness. History of colon cancer in 2017. The patient had surgery, had liver metastases. I had seen this lady in my office, suggested systemic chemotherapy, however, the patient refused. The patient did not follow up. History of having had an ID, again the same history that she did not follow up with the physician. SOCIAL HISTORY: Noncontributory. FAMILY HISTORY: Noncontributory. ALLERGIES: None. MEDICATIONS: At this time; 1. Promethazine. 2. Zosyn. 3. Sodium chloride. 4. Morphine. 5. Pepcid. 6. Lovenox. REVIEW OF SYSTEMS HEENT: Normal. CARDIAC: History of ID. RESPIRATORY: Lung metastasis. GI: Colon cancer with liver metastasis. Bowel obstruction. : Normal. MUSCULOSKELETAL: Normal. SKIN AND BREASTS: Normal. NEUROENDOCRINE: Normal. PHYSICAL EXAMINATION GENERAL: A cachectic female, nasogastric tube, abdominal distention. NECK: No adenopathy. HEART: Within normal limits. LUNGS: Clear. ABDOMEN: Obese, tympanitic. RECTAL AND VAGINAL: Exam deferred. CENTRAL NERVOUS SYSTEM: Essentially normal. EXTREMITIES: Essentially normal. LABORATORY DATA: Shows a hemoglobin of 12.3, hematocrit 35.2, white count 11,900, platelets 290,000. Sodium 137, potassium 3.6, chloride 99, CO2 of 25, BUN 15, creatinine 0.6 glucose 146. Bilirubin 1.1, SGOT 8, SGPT 9, alkaline phosphatase 123. CAT scan shows the patient to have bowel obstruction, liver metastasis, and lung metastasis. IMPRESSION 1. History of colon cancer in 2017. 2. No followup because of noncompliance. 3. History of myocardial infarction. 4. Urinary tract infection. 5. Hypokalemia. 6. Mid rectal mass, 4.5 cm. 7. Liver metastasis. 8. Gallstones. 9. Lung metastasis. PLAN, COMMENTS, AND SUGGESTIONS: Suggest best supportive care. If the decompression does not work, perhaps the patient will need a diverting colostomy. This is a terminal case. The family has not been able to help her. I have contacted the son 1 year back, who lives in [place] and I was told "I work and I can't attend to the needs of my mother." Social service consultation is suggested. Job#: [id number] VAS cc:Dr. Kp Rascon
== END 2017-08-22 12:43 | disposition hospice, home (50) | DRG 330 ==
LOC: ER 15:13 → MED/SURG2 21:05 → ICU 08-10 23:03 → IMCU 08-11 07:28 → MED/SURG2 08-11 14:10
PROVIDERS: ADMIT Internal Medicine; ATTEND Internal Medicine
PROC: 0DTF0ZZ Resection of Right Large Intestine, Open Approach (ICD-10-PCS; 2017-08-10)
PROC: 0D1N074 Bypass Sigmoid Colon to Cutaneous with Autologous Tissue Substitute, Open Approach (ICD-10-PCS; 2017-08-10)
PROC: 0WJP0ZZ Inspection of Gastrointestinal Tract, Open Approach (ICD-10-PCS; principal; 2017-08-10 19:06)
CPT/HCPCS: 36415; 71045; 74177; 80048; 80053; 81001; 82150; 82378; 82948; 83690; 83735; 84100; 84132; 85025; 85610; 85730; 86301; 86850; 86900; 88307; 88309; 93005; 96361; 99284; J0694; J1100; J1650; J2001; J2060; J2250; J2270; J2405; J2543; J2550; J3480; J7030; J7050; J7120; Q9967